=== PATIENT | female | born 1990 | race Two or more races ===

== ENCOUNTER 2016-10-18 16:57 | Emergency (ER) | payer OTHER ==
[~2016-10-18] VITALS: Ht 167.6 cm; Wt 74.1 kg
[2016-10-18] MEDS ORDERED: Prenatal (17:06)
--- NOTE | 2016-10-18 19:27 | REP ---
HISTORY: Pain and swelling. Multiple ultrasonographic images of the deep venous structures of the right upper extremity were obtained and there is evidence of echogenic material seen in the cephalic vein, which is not considered part of the deep venous structures necessarily. The imaged portion of the jugular, axillary, subclavian, basilic and brachial veins are all of normal appearance showing no evidence of abnormal clot formation or limitation during augmentation. IMPRESSION: Superficial thrombophlebitis right upper extremity as described above. Signed by Abner Mai DO 10/18/2016 07:45 P
[2016-10-18 19:30] VITALS: BP 121/73
== END 2016-10-18 19:36 | disposition home or self-care (01) ==
LOC: M ED 16:57
DX: O22.22 Superficial thrombophlebitis in pregnancy, second trimester (principal); Z3A.14 14 weeks gestation of pregnancy

== ENCOUNTER → 2016-10-30 | Outpatient (REF) | payer OTHER ==
[~2016-10-30] MED LIST: Prenatal
== END ==
LOC: M SFHCLERA 19:58
PROVIDERS: ATTEND Nurse Practitioner Family
DX: R10.2 Pelvic and perineal pain (principal)

== ENCOUNTER 2017-01-21 19:39 | Emergency (ER) | payer OTHER ==
[~2017-01-21] VITALS: Ht 167.6 cm; Wt 82.7 kg
[2017-01-21 19:40] VITALS: BP 135/80
[2017-01-21] MEDS ORDERED: ROBI30SU PO (19:46)
== END 2017-01-21 20:35 | disposition home or self-care (01) ==
LOC: M ED 19:39
DX: O99.412 Diseases of the circulatory system complicating pregnancy, second trimester (principal); I73.00 Raynaud's syndrome without gangrene; Z3A.27 27 weeks gestation of pregnancy

== ENCOUNTER 2017-02-23 13:07 | Outpatient (CLI) | payer OTHER ==
[~2017-02-23] VITALS: Ht 167.6 cm; Wt 88.1 kg
[~2017-02-23 13:07] MED LIST changes: +ROBI30SU PO
[2017-02-23 13:21] VITALS: BP 119/69
[2017-02-23] MEDS ORDERED: ACET50TA PO (13:30)
--- NOTE | 2017-02-23 18:50 | HPE ---
DATE OF ADMISSION: 02/23/2017 This lady a 26-year-old 1, para 0, last menstrual period 05/31/2016, EDC 04/18/2017 at 32 and 2 weeks of gestation with no movement for 12 hours. She was seen yesterday in clinic with no evidence of issues. Labs show AB positive, HIV negative, hep negative, RPR negative, rubella immune. Varicella immune. Urine was negative. Gonorrhea and chlamydia are negative. 1-hour glucose was 89. Her risk factors is that she has had a previous urinary tract infection (UTI), and she suffers from migraine. Her urine is 1005, pH 6, negative, negative, negative. Blood pressure 119/69, respirations 16, pulse 108, temperature 98.1. PHYSICAL EXAMINATION: On physical examination, no acute distress. Symphysis fundus height is 32 cm. Four quadrant bowel sounds are noted. Nontender uterus. Category one strip with accelerations. No decelerations and moderate variability. The rest of the examination is normal. Normocephalic, atraumatic. Neck with full range of motions. Pupils equal and reactive to light. Chest is clear bilaterally to the bases. No wheezes or rhonchi. Distal pulses symmetric. No evidence of DVT, PE or superficial phlebitis. She does have multiple tattoos thought. Back with no costovertebral angle tenderness. No rashes, lesions or pruritus. No arthralgia, myalgia. No complaints of cough, wheezes, shortness of breath, or dyspnea on exertion. No chest pain. Multiple allergies. No bleeding. Neuro complete. No incontinence, urgency or frequency. No nausea, vomiting, diarrhea or constipation. Past medical and surgical history is unremarkable. She does not smoke, drink or abuse drugs. She is to a soldier. Good support system, and there is no domestic violence. In summary, we have a 32+ week of gestation with a category one strip. Discharged to followup in the office in 3-4 weeks' time.
== END 2017-02-23 14:29 | disposition home or self-care (01) ==
LOC: M LDO 13:07
PROVIDERS: ATTEND Obstetrics & Gynecology
DX: O36.8130 Decreased fetal movements, third trimester, not applicable or unspecified (principal); Z3A.32 32 weeks gestation of pregnancy; Z87.440 Personal history of urinary (tract) infections; G43.909 Migraine, unspecified, not intractable, without status migrainosus; O99.353 Diseases of the nervous system complicating pregnancy, third trimester

== ENCOUNTER 2017-04-17 16:45 | Outpatient (CLI) | payer OTHER | END 2017-04-17 18:00 | disposition home or self-care (01) | LOC: M LDO 16:45 | DX: O47.1 False labor at or after 37 completed weeks of gestation (principal); Z3A.39 39 weeks gestation of pregnancy; O99.353 Diseases of the nervous system complicating pregnancy, third trimester; G43.909 Migraine, unspecified, not intractable, without status migrainosus; Z87.440 Personal history of urinary (tract) infections | CPT/HCPCS: 59025 ==

== ENCOUNTER 2017-04-17 21:07 | Inpatient (IN) | payer OTHER ==
[2017-04-17 22:20] LABS: HEMATOCRIT 45.2 % (36.0-47.0); HEMOGLOBIN 15.2 g/dl (12.0-16.0); MEAN CORPUSCULAR HEMOGLOBIN 30.3 pg (27.0-33.0); MEAN CORPUSCULAR HGB CONC 33.6 g/dl (32.0-36.5); PLATELET COUNT, AUTOMATED 142 10^3/uL (150-450); RED BLOOD COUNT 5.02 10^6/uL (4.00-5.40); RED CELL DISTRIBUTION WIDTH 14.3 % (11.5-14.5)
[2017-04-17] MEDS ORDERED: FENTANYL 2MCG/ML ROPIVACAINE 0.2% IN 0.9% NACL 200ML IVBAG As Ordered (22:37)
[2017-04-17] MEDS ORDERED: ONDANSETRON 4MG/2ML VIAL (J2405) IV (23:35)
[2017-04-17] MEDS ORDERED: REFRIGERATOR IV KEYS XX (23:35)
[2017-04-17] MEDS ORDERED: LACTATED RINGER'S 1000 ML IV (23:35)
[2017-04-17] MEDS ORDERED: EPIDURAL/PCA KEYS XX (23:35)
[2017-04-17] MEDS ORDERED: ePHEDrine INJ 50 MG/ML VIAL IV (23:35)
[2017-04-17] MEDS ORDERED: NALOXONE INJ 0.4 MG/1 ML VIAL (J2310) IV (23:35)
[2017-04-17] MEDS ORDERED: diphenhydrAMINE INJ 50MG/ML VIAL (J1200) IV (23:35)
[2017-04-17] MEDS ORDERED: EPIDURAL COMMENT XX (23:35)
[2017-04-18] MEDS: LR 1,000 ML IV ×2 (08:34→14:11)
[2017-04-18] MEDS: FENTANYL/ROPIVACAINE/NACL BAG 200 ML EPIDURAL (14:37)
[2017-04-18] MEDS ORDERED: OXYTOCIN 30 UNITS IN 0.9% NaCl 500ML IV BAG (J2590) As Ordered (17:15)
[2017-04-18] MEDS ORDERED: LR 1,000 ML IV (17:30)
[2017-04-18] MEDS: OXYTOCIN DRIP 30 UNITS in APPROPRIATE DILUENT 1 EA IV (17:37)
[2017-04-19 02:21] LABS: CORD GAS ABE V -9.2; CORD GAS HCO3 V 18.7 MEQ/L; CORD GAS O2 SAT V 41.5 %; CORD GAS PCO2 V 47.2 mmHg; CORD GAS PH V 7.215 UNITS; CORD GAS PO2 V 23.7 mmHg; CORD GAS TCO2 V 20.1 MEQ/L
[2017-04-19 02:22] LABS: CORD GAS HCO3 A 18.5 MEQ/L; CORD GAS O2 SAT A 52.6 %; CORD GAS PCO2 A 50.2 mmHg; CORD GAS PH A 7.185 UNITS; CORD GAS PO2 A 29.5 mmHg; CORD GAS SBC A 15.7 MEQ/L; CORD GAS TCO2 A 20.1 MEQ/L
[2017-04-19] MEDS: OXYTOCIN DRIP 30 UNITS in APPROPRIATE DILUENT 1 EA IV (02:36)
[2017-04-19] MEDS ORDERED: METOCLOPRAMIDE INJ 10MG/2ML VIAL (J2765) IV (02:45)
[2017-04-19] MEDS ORDERED: MEASLES,MUMPS,RUBELLA VACCINE INJ (MMR-II) (90707) SC (02:45)
[2017-04-19] MEDS ORDERED: RHOGAM 300 MCG (1500 IU) INJ (J2790) IM (02:45)
[2017-04-19] MEDS: IBUPROFEN 800 MG TAB PO ×2 (04:24→17:53)
[2017-04-19] MEDS: PRENATAL VITAMINS CHEWABLE TABLET PO (09:01)
[2017-04-19] MEDS: DOCUSATE SODIUM 100 MG CAP PO ×2 (09:02→19:38)
[2017-04-19] MEDS: ACETAMINOPHEN TAB 650MG DOSE (2X325MG) PO ×2 (11:49→19:38)
[2017-04-19] MEDS: LACTATED RINGER'S 1000 ML IV (18:09)
[2017-04-19] MEDS: DIBUCAINE 1% OINTMENT 30GM TOP (19:37)
[2017-04-20] MEDS: IBUPROFEN 800 MG TAB PO ×2 (06:04→17:09)
[2017-04-20] MEDS: DOCUSATE SODIUM 100 MG CAP PO ×2 (08:52→21:22)
[2017-04-20] MEDS: PRENATAL VITAMINS CHEWABLE TABLET PO (08:52)
[2017-04-21] MEDS: IBUPROFEN 800 MG TAB PO (04:14)
[2017-04-21] MEDS: PRENATAL VITAMINS CHEWABLE TABLET PO (09:45)
[2017-04-21] MEDS: DOCUSATE SODIUM 100 MG CAP PO (09:46)
== END 2017-04-21 12:40 | disposition home or self-care (01) | DRG 775 ==
LOC: M LDO 21:07 → M OBS 04-19 05:34 → M LDI 22:04
PROC: 10D07Z6 Extraction of Products of Conception, Vacuum, Via Natural or Artificial Opening (ICD-10-PCS; principal; 2017-04-19)
PROC: 0W8NXZZ Division of Female Perineum, External Approach (ICD-10-PCS; 2017-04-19)
DX: O76 Abnormality in fetal heart rate and rhythm complicating labor and delivery (principal); O63.1 Prolonged second stage (of labor); Z3A.39 39 weeks gestation of pregnancy; Z37.0 Single live birth